=== PATIENT | female | born 1990 | race Two or more races ===

== ENCOUNTER 2017-02-09 08:00 | Outpatient (CLI) | payer OTHER | END 2017-02-09 23:59 | DX: R61 Generalized hyperhidrosis (principal); R53.83 Other fatigue ==

== ENCOUNTER 2017-03-02 11:08 | Outpatient (CLI) | payer OTHER | END 2017-03-02 11:09 | disposition home or self-care (01) | DX: E04.1 Nontoxic single thyroid nodule (principal) ==

== ENCOUNTER 2018-03-27 20:56 | Outpatient (CLI) | END 2018-03-27 20:57 | disposition home or self-care (01) ==